=== PATIENT | female | born 1955 | race Caucasian/White ===

== ENCOUNTER 2016-12-07 10:02 | Day surgery (SDC) | END 2016-12-07 16:17 | disposition home or self-care (01) | DX: Z12.11 Encounter for screening for malignant neoplasm of colon (principal); K29.50 Unspecified chronic gastritis without bleeding; D12.3 Benign neoplasm of transverse colon; I10 Essential (primary) hypertension | CPT/HCPCS: 43239; 45380; 88305; 88312; J0461; J2250; J3010; Z7610 ==